=== PATIENT | female | born 2000 | race Caucasian/White ===

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

== ENCOUNTER 2019-09-02 10:19 | Emergency (ER) | payer BC, OTHER ==
[2019-09-02 10:25] VITALS: RESP 18
[2019-09-02 11:05] LABS: Basophils # (A) 0.1 k/uL (0-0.2); Basophils % (A) 1 %; Eosinophils # (A) 0.4 k/uL (0-0.7); Eosinophils % (A) 5 %; HGB 12.7 gm/dL (11.4-16.0); Lymphocytes # (A) 3.1 k/uL (1.0-4.8); Lymphocytes % (A) 40 %; MCH 29.1 pg (25.0-35.0); MCHC 33.3 g/dL (31.0-37.0); MCV 87.4 fL (80.0-100.0); Mean Platelet Volume 6.9; Monocytes # (A) 0.4 k/uL (0-1.0); Monocytes % (A) 5 %; Neutrophils # (A) 3.7 k/uL (1.3-7.7); Neutrophils % (A) 48 %; Platelet Count 291 k/uL (150-450); RBC 4.35 m/uL (3.80-5.40); RDW 12.3 % (11.5-15.5); WBC 7.8 k/uL (4.0-11.0)
[2019-09-02 11:14] LABS: ALT 14 U/L (4-34); AST 20 U/L (14-36); African American GFR (CKD) >90 (>60 ml/min/1.73 sqM); Albumin 4.3 g/dL (3.5-5.0); Alkaline Phosphatase 56 U/L (38-126); Anion Gap 11 mmol/L; Blood Urea Nitrogen 11 mg/dL (7-17); Calcium 9.1 mg/dL (8.4-10.2); Carbon Dioxide 25 mmol/L (22-30); Chloride 103 mmol/L (98-107); Glucose 88 mg/dL (74-99); Magnesium 1.9 mg/dL (1.6-2.3); Non-African American GFR(CKD) >90 (>60 ml/min/1.73 sqM); Potassium 4.5 mmol/L (3.5-5.1); Sodium 139 mmol/L (137-145); Total Bilirubin 0.2 mg/dL (0.2-1.3); Total Protein 7.3 g/dL (6.3-8.2)
--- NOTE | 2019-09-02 11:25 | ED ---
SOB HPI - General Chief Complaint: Shortness of Breath Stated Complaint: SOB Time Seen by Provider: 09/02/19 10:28 Source: patient Mode of arrival: ambulatory Limitations: no limitations - History of Present Illness Initial Comments: 19yo female with history of depression presenting today for cc of SOB. Patient states she woke up at 6AM feeling short of breath and like she cant expand her lungs. After I read triage I inquired about chest pressure, she denies pressure or pain but states she "just feels short of breath" Patient denies leg swelling, cancer, DVT/PE surgery, denies fevers, recent surgery or travel. Patient admits to slight cough. Patient states she also has been feeling anxious and this may be a cause. Patient denies additional complaints, denies arm pain, jaw pain, back pain, headaches, sore throat rash. Patient appears well on arrival, respirations are nonlabored she does not appear in respiratory distress. - Related Data Home Medications Medication Instructions Recorded Confirmed No Known Home Medications 11/14/18 11/14/18 Allergies Allergy/AdvReac Type Severity Reaction Status Date / Time No Known Allergies Allergy Verified 09/02/19 10:25 Review of Systems ROS Statement: Those systems with pertinent positive or pertinent negative responses have been documented in the HPI. ROS Other: All systems not noted in ROS Statement are negative. Past Medical History Past Medical History: No Reported History History of Any Multi-Drug Resistant Organisms: None Reported Past Surgical History: Section Past Anesthesia/Blood Transfusion Reactions: No Reported Reaction Past Psychological History: Depression Smoking Status: Former smoker Past Alcohol Use History: Occasional Past Drug Use History: None Reported - Past Family History Father Family Medical History: No Reported History General Exam - General Exam Comments Initial Comments: General: The patient is awake and alert, in no distress, and does not appear acutely ill. Eye: +3 mm pupils are equal, round and reactive to light, extra-ocular movements are intact. No nystagmus. There is normal conjunctiva bilaterally. No signs of icterus. Ears, nose, mouth and throat: There are moist mucous membranes and no oral lesions. Neck: The neck is supple, there is no tenderness or JVD. Cardiovascular: There is a regular rate and rhythm. No murmur, rub or gallop is appreciated. Respiratory: Lungs are clear to auscultation, respirations are non-labored, breath sounds are equal. No wheezes, stridor, rales, or rhonchi. Gastrointestinal: Soft, non-distended, non-tender abdomen without masses or organomegaly noted. There is no rebound or guarding present. Musculoskeletal: Normal ROM, no tenderness. Strength 5/5. Sensation intact. Radial pulses equal bilaterally 2+. Neurological: A&O x 3. CN II-XII intact grossly, There are no obvious motor or sensory deficits. Coordination appears grossly intact. Speech is normal. Skin: Skin is warm and dry and no rashes or lesions are noted. No calf swelling/pain, no LE edema. Psychiatric: Cooperative, appropriate mood & affect, normal judgment. Limitations: no limitations Course Vital Signs 09/02/19 09/02/19 09/02/19 10:22 10:37 12:05 Temperature 98.1 F 98.0 F Pulse Rate 84 69 Respiratory 18 18 18 Rate Blood Pressure 130/80 125/82 O2 Sat by Pulse 100 99 Oximetry Medical Decision Making - Medical Decision Making 19yo female presenting for SOB. Troponin (-) with no murmur on exam--CXR clear of infiltrates/effusions. Lungs clear on exam. Oxygen saturation WNL. Patient is no in distress. Discusses how she feels this may be due to anxiety with the given pandemic. Patient given xanax. Patient dimer WNL. Mild cough. Will be covid tested with home call for results. Patient does not appear toxic or in distress. I do not feel this is an ACS given history patient provided me on evaluation. Patient is to immediately return if symptoms persist or worsen. I also recommended patient f/u with primary care provider in next 24-48 hours. Patient agreeable and prefers discharge at this time. Discussed EKG, findings with attending as well as history provided, Dr Perez is agreeable. Patient discharged appearing well. - Lab Data Result diagrams: 09/02/19 10:50 09/02/19 10:50 Lab Results 09/02/19 09/02/19 09/02/19 Range/Units 10:50 10:50 10:50 WBC 7.8 (4.0-11.0) k/uL RBC 4.35 (3.80-5.40) m/uL Hgb 12.7 (11.4-16.0) gm/dL Hct 38.0 (34.0-46.0) % MCV 87.4 (80.0-100.0) fL MCH 29.1 (25.0-35.0) pg MCHC 33.3 (31.0-37.0) g/dL RDW 12.3 (11.5-15.5) % Plt Count 291 (150-450) k/uL Neutrophils % 48 % Lymphocytes % 40 % Monocytes % 5 % Eosinophils % 5 % Basophils % 1 % Neutrophils # 3.7 (1.3-7.7) k/uL Lymphocytes # 3.1 (1.0-4.8) k/uL Monocytes # 0.4 (0-1.0) k/uL Eosinophils # 0.4 (0-0.7) k/uL Basophils # 0.1 (0-0.2) k/uL PT 9.7 (9.0-12.0) sec INR 0.9 (<1.2) APTT 24.3 (22.0-30.0) sec D-Dimer 0.29 (<0.60) mg/L FEU Sodium 139 (137-145) mmol/L Potassium 4.5 (3.5-5.1) mmol/L Chloride 103 (98-107) mmol/L Carbon Dioxide 25 (22-30) mmol/L Anion Gap 11 mmol/L BUN 11 (7-17) mg/dL Creatinine 0.66 (0.52-1.04) mg/dL Est GFR (CKD-EPI)AfAm >90 (>60 ml/min/1.73 sqM) Est GFR (CKD-EPI)NonAf >90 (>60 ml/min/1.73 sqM) Glucose 88 (74-99) mg/dL Plasma Lactic Acid Tomás (0.7-2.0) mmol/L Calcium 9.1 (8.4-10.2) mg/dL Magnesium 1.9 (1.6-2.3) mg/dL Total Bilirubin 0.2 (0.2-1.3) mg/dL AST 20 (14-36) U/L ALT 14 (4-34) U/L Alkaline Phosphatase 56 (38-126) U/L Troponin I (0.000-0.034) ng/mL Total Protein 7.3 (6.3-8.2) g/dL Albumin 4.3 (3.5-5.0) g/dL Urine HCG, Qual (Not Detectd) 09/02/19 09/02/19 09/02/19 Range/Units 10:50 10:50 10:50 WBC (4.0-11.0) k/uL RBC (3.80-5.40) m/uL Hgb (11.4-16.0) gm/dL Hct (34.0-46.0) % MCV (80.0-100.0) fL MCH (25.0-35.0) pg MCHC (31.0-37.0) g/dL RDW (11.5-15.5) % Plt Count (150-450) k/uL Neutrophils % % Lymphocytes % % Monocytes % % Eosinophils % % Basophils % % Neutrophils # (1.3-7.7) k/uL Lymphocytes # (1.0-4.8) k/uL Monocytes # (0-1.0) k/uL Eosinophils # (0-0.7) k/uL Basophils # (0-0.2) k/uL PT (9.0-12.0) sec INR (<1.2) APTT (22.0-30.0) sec D-Dimer (<0.60) mg/L FEU Sodium (137-145) mmol/L Potassium (3.5-5.1) mmol/L Chloride (98-107) mmol/L Carbon Dioxide (22-30) mmol/L Anion Gap mmol/L BUN (7-17) mg/dL Creatinine (0.52-1.04) mg/dL Est GFR (CKD-EPI)AfAm (>60 ml/min/1.73 sqM) Est GFR (CKD-EPI)NonAf (>60 ml/min/1.73 sqM) Glucose (74-99) mg/dL Plasma Lactic Acid Tomás 1.6 (0.7-2.0) mmol/L Calcium (8.4-10.2) mg/dL Magnesium (1.6-2.3) mg/dL Total Bilirubin (0.2-1.3) mg/dL AST (14-36) U/L ALT (4-34) U/L Alkaline Phosphatase (38-126) U/L Troponin I <0.012 (0.000-0.034) ng/mL Total Protein (6.3-8.2) g/dL Albumin (3.5-5.0) g/dL Urine HCG, Qual Not Detected (Not Detectd) - EKG Data EKG Comments: Ventricular rate 76 bpm, UT interval 180 ms, QRS catholic 88 ms, QT/QTC 392/441 ms. This is normal sinus with sinus arrhythmia. No ST elevation or d epression. Disposition Clinical Impression: SOB (shortness of breath) Disposition: HOME SELF-CARE Condition: Good Instructions (If sedation given, give patient instructions): Dyspnea (ED) Additional Instructions: Please use medication as discussed. Please follow-up with family doctor in the next 2 days. Will be called with results of covid test. Please return to emergency room if the symptoms increase or worsen or for any other concerns. Is patient prescribed a controlled substance at d/c from ED?: No Referrals: None,Stated [Primary Care Provider] - 1-2 days [facility] [NON-STAFF] - 1-2 days Time of Disposition: 11:50
--- NOTE | 2019-09-02 11:31 | XR ---
EXAMINATION TYPE: XR chest 2V DATE OF EXAM: 09/02/2019 HISTORY: difficulty breathing. REFERENCE: NONE. FINDINGS: The lungs are clear. Pleural space are clear. The heart is not enlarged. IMPRESSION: NORMAL CHEST.
[2019-09-02 11:46] LABS: D-Dimer 0.29 mg/L FEU (<0.60); INR 0.9 (<1.2); Partial Thromboplastin Time 24.3 sec (22.0-30.0); Prothrombin Time 9.7 sec (9.0-12.0)
[2019-09-02] MEDS ORDERED: ALPRAZolam 0.25 MG TAB PO STA (11:55)
[2019-09-02 12:06] VITALS: BP 125/82; PULSE 69; TEMP 98
== END 2019-09-02 12:12 | disposition home or self-care (01) ==
LOC: EC 10:19
DX: R06.02 Shortness of breath (principal); R05 Cough; R07.89 Other chest pain; Z87.891 Personal history of nicotine dependence; Z20.828 Contact with and (suspected) exposure to other viral communicable diseases
CPT/HCPCS: 36415; 71046; 80053; 81025; 83605; 83735; 84484; 85025; 85379; 85610; 85730; 87635; 99285

== ENCOUNTER → 2020-02-26 | Outpatient (CLI) | payer BC, OTHER | END | disposition home or self-care (01) | LOC: LABWHC1 09:56 | PROVIDERS: ATTEND Pediatrics Pediatric Infectious Diseases | DX: Z03.818 Encounter for observation for suspected exposure to other biological agents ruled out (principal) | CPT/HCPCS: 87635; C9803 ==